=== PATIENT | male | born 1950 | race Caucasian/White ===

== ENCOUNTER 2016-12-15 17:36 | Inpatient (IN) | payer MEDICARE ==
[~2016-12-15] VITALS: Ht 177.8 cm; Wt 67.6 kg
[2016-12-15] MEDS ORDERED: ASPI81TA31 PO (18:18)
[2016-12-15] MEDS ORDERED: PROC5TAB PO (18:18)
[2016-12-15] MEDS ORDERED: ROPI0.253 PO (18:18)
[2016-12-15] MEDS ORDERED: FOLI1TAB16 PO (18:18)
[2016-12-15] MEDS ORDERED: MULT-70 PO (18:18)
[2016-12-15] MEDS ORDERED: SIMV20TA6 PO (18:18)
[2016-12-15] MEDS ORDERED: FERR-58 PO (18:18)
[2016-12-15] MEDS ORDERED: PREG50CA PO (18:18)
[2016-12-15] MEDS ORDERED: HYDR-3657 PO (18:18)
[2016-12-15] MEDS ORDERED: BUSP10TA3 PO (18:18)
[2016-12-15] MEDS ORDERED: DIAZ10TA4 PO (18:18)
[2016-12-15] MEDS ORDERED: DULO60CA45 PO (18:18)
[2016-12-15] MEDS ORDERED: CYAN10009 PO (18:18)
[2016-12-15] MEDS ORDERED: TRAZ-147 PO (18:18)
[2016-12-15] MEDS ORDERED: RANI150C4 PO (18:18)
[2016-12-15] MEDS ORDERED: CLONAZEPAM 0.5 MG TABLET PO ONE (19:15)
[2016-12-15] MEDS ORDERED: CLONAZEPAM 1 MG TABLET ONE (19:24)
--- NOTE | 2016-12-15 20:18 | NUR ---
Pt. admitted to [facility] , under care of Dr. Bolden/Dr Pedraza. Dx: Psychosis. On 5150 hold for Gravely Disabled. Belongs List completed.
[2016-12-15] MEDS ORDERED: MAG HYDROX/AL HYDROX/SIMETH 30 ML LIQUID UDC PO PRN (20:30)
[2016-12-15] MEDS ORDERED: MAGNESIUM HYDROXIDE 30 ML LIQUID UDC PO PRN (20:30)
[2016-12-15] MEDS ORDERED: TEMAZEPAM 7.5 MG CAPSULE PO PRN (20:30)
[2016-12-15] MEDS: ACETAMINOPHEN 325 MG TABLET PO PRN (20:40)
--- NOTE | 2016-12-15 21:35 | NUR ---
ADMITTED 66 YEAR OLD MALE ON 5150 FOR GD, AWAKE, A\O X3,ANXIOUS, CRYING SPELLS TO GET WHAT HE WANTS, LOUD, EASILY ANGRY AND AGITATED, NEEDY, DEMANDING, PRESSURED SPEECH, MED SEEKING, DEMANDING FOR LARGE DOSE OF SLEEPING PILL, UNCOOPERATIVE WITH THE ADMISSION PROCESS, UNABLE TO GIVE PERTINENT RESPONSES TO QUESTIONS ASKED, ATTEMPTED TO NOTIFY THE DESIGNATED PERSON ON FACE SHEET - HANS LEIVA,WAS TOLD THAT SHE IS GONE FOR THE DAY, IT APPEARS SHE IS A STAFF MEMBER AT [facility] , THE FACILITY WHERE PT RESIDES, EPIC DOCTOR CONTRACTS ANALYST PAGED THROUGH EXCHANGE TO [employer], WILL CONTINUE TO MONITOR CLOSELY.
[2016-12-15 22:12] VITALS: BP 135/86
[2016-12-16] MEDS: LORAZEPAM 0.5 MG TABLET PO PRN ×2 (01:03→09:33)
[2016-12-16 07:30] VITALS: BP 130/80
[2016-12-16] MEDS: ACETAMINOPHEN 325 MG TABLET PO PRN (09:33)
[2016-12-16] MEDS ORDERED: DULOXETINE 30 MG CAPSULE.DR PO SCH (14:30)
[2016-12-16] MEDS: CLONAZEPAM 1 MG TABLET PO PRN (14:50)
[2016-12-16] MEDS: ARIPIPRAZOLE 5 MG TABLET PO SCH (15:41)
[2016-12-16] MEDS: busPIRone 10 MG TABLET PO SCH ×2 (15:41→18:12)
[2016-12-16] MEDS: DULOXETINE 60 MG CAPSULE.DR PO SCH (15:42)
[2016-12-16 16:00] VITALS: BP 121/82
--- NOTE | 2016-12-16 16:15 | NUR ---
Initial discharge instructions: The patient resides at [facility] [[address] [place] [address] ]. Spoke with Leticia at the facility who stated that they will be accepting the patient back upon discharge. Spoke with the patient who stated that he would like to return to the facility upon discharge. SW will speak with pt and MD regarding most appropriate discharge plan. SW will form a safe and proper discharge.
[2016-12-16] MEDS: HYDROCODONE/APAP 10-325 MG TABLET PO PRN (17:10)
[2016-12-16] MEDS: PREGABALIN 25 MG CAPSULE PO SCH (18:13)
--- NOTE | 2016-12-16 20:00 | NUR ---
PT IS ANXIOUS, NEEDY, DEMANDING, ATTENTION AND MED SEEKING. THROWS TANTRUM WHEN HE DOES NOT GET HIS WAY, NEEDS REALITY ORIENTATION, WILL CONTINUE TO MONITOR CLOSELY.
[2016-12-16 20:25] VITALS: BP 147/91
[2016-12-16] MEDS: TAMSULOSIN HCL 0.4 MG CAP.SR.24H PO SCH (20:26)
[2016-12-16] MEDS: ropiniROLE 0.25 MG TABLET PO SCH (20:27)
[2016-12-16] MEDS: SIMVASTATIN 20 MG TABLET PO SCH (20:27)
[2016-12-17] MEDS: CLONAZEPAM 1 MG TABLET PO PRN ×3 (01:17→18:56)
[2016-12-17 07:30] VITALS: BP 116/79
[2016-12-17] MEDS ORDERED: Medication Not On Formulary EA (Multivitamins (Multivitamin) 1 EACH) PO SCH (09:00)
[2016-12-17] MEDS: FOLIC ACID 1 MG TABLET PO SCH (09:01)
[2016-12-17] MEDS: FAMOTIDINE 20 MG TABLET PO SCH (09:01)
[2016-12-17] MEDS: MULTIVITAMINS,THERAPEUTIC TABLET PO SCH (09:01)
[2016-12-17] MEDS: ASPIRIN 81 MG TAB.CHEW PO SCH (09:01)
[2016-12-17] MEDS: busPIRone 10 MG TABLET PO SCH ×3 (09:01→16:59)
[2016-12-17] MEDS: ARIPIPRAZOLE 5 MG TABLET PO SCH (09:01)
[2016-12-17] MEDS: FERROUS SULFATE 325 MG TABEC PO SCH (09:01)
[2016-12-17] MEDS: DULOXETINE 60 MG CAPSULE.DR PO SCH (09:01)
[2016-12-17] MEDS: CYANOCOBALAMIN 1,000 MCG TABLET PO SCH (09:01)
[2016-12-17] MEDS: PREGABALIN 25 MG CAPSULE PO SCH ×2 (09:01→16:59)
--- NOTE | 2016-12-17 14:55 | NUR ---
RECEIVED PHONE CALL FROM TAVARES ([phone]) FROM [facility], WHO REQUESTED TO BE NOTIFIED WHEN PT IS BEING DISCHARGED
[2016-12-17 15:00] VITALS: BP 127/66
[2016-12-17] MEDS ORDERED: TEMAZEPAM 7.5 MG CAPSULE PO PRN ×2 (15:00)
[2016-12-17] MEDS: HYDROCODONE/APAP 10-325 MG TABLET PO PRN (16:04)
[2016-12-17 20:09] VITALS: BP 114/71
[2016-12-17] MEDS: ropiniROLE 0.25 MG TABLET PO SCH (20:10)
[2016-12-17] MEDS: TAMSULOSIN HCL 0.4 MG CAP.SR.24H PO SCH (20:10)
[2016-12-17] MEDS: SIMVASTATIN 20 MG TABLET PO SCH (20:10)
[2016-12-17] MEDS: TEMAZEPAM 15 MG CAPSULE PO PRN (22:24)
[2016-12-18 07:25] LABS: BASOPHILS % (AUTO) 0.9 % (0.0-2.0); EOSINOPHILS # (AUTO) 0.2 K/uL (0.0-0.7); EOSINOPHILS % (AUTO) 3.5 % (0.0-7.0); HEMATOCRIT 31.4 % (40-50); HEMOGLOBIN 10.6 G/DL (14.0-18.0); LYMPHOCYTES # (AUTO) 1.3 K/UL (0.8-4.8); LYMPHOCYTES % (AUTO) 25.4 % (20.5-51.5); MEAN CORPUSCULAR HEMOGLOBIN 31.4 UUG (27.0-31.0); MEAN CORPUSCULAR HGB CONC 34 g/dL (32.0-37.0); MEAN CORPUSCULAR VOLUME 93.5 FL (82.0-92.0); MONOCYTES # (AUTO) 0.6 K/UL (0.1-1.30); NEUTROPHILS # (AUTO) 2.9 K/UL (1.8-8.9); NEUTROPHILS % (AUTO) 59.2 % (38.5-71.5); PLATELET COUNT (AUTO) 117 K/UL (150-450); RED BLOOD CELL COUNT(AUTO) 3.36 MIL/UL (4.7-6.1)
[2016-12-18 07:30] VITALS: BP 110/68
[2016-12-18 08:01] LABS: THYROID STIMULATING HORMONE 1.067 mIU/mL (0.358-3.740)
[2016-12-18] MEDS: FERROUS SULFATE 325 MG TABEC PO SCH (08:04)
[2016-12-18] MEDS: FOLIC ACID 1 MG TABLET PO SCH (08:04)
[2016-12-18] MEDS: MULTIVITAMINS,THERAPEUTIC TABLET PO SCH (08:04)
[2016-12-18] MEDS: PREGABALIN 25 MG CAPSULE PO SCH ×2 (08:04→16:05)
[2016-12-18] MEDS: CYANOCOBALAMIN 1,000 MCG TABLET PO SCH (08:04)
[2016-12-18] MEDS: FAMOTIDINE 20 MG TABLET PO SCH (08:04)
[2016-12-18] MEDS: ARIPIPRAZOLE 5 MG TABLET PO SCH (08:04)
[2016-12-18] MEDS: DULOXETINE 60 MG CAPSULE.DR PO SCH (08:04)
[2016-12-18] MEDS: busPIRone 10 MG TABLET PO SCH ×3 (08:04→16:05)
[2016-12-18] MEDS: ASPIRIN 81 MG TAB.CHEW PO SCH (08:04)
[2016-12-18 08:24] LABS: BILIRUBIN,TOTAL 0.6 mg/dL (0.2-1.0); CREATININE 2.2 mg/dL (0.6-1.3); MAGNESIUM 1.8 mg/dL (1.8-2.4); PHOSPHOROUS 3.7 mg/dL (2.5-4.9); POTASSIUM 4.8 mmol/L (3.5-5.1); TOTAL PROTEIN, SERUM 8.1 g/dL (6.4-8.2)
[2016-12-18] MEDS: CLONAZEPAM 1 MG TABLET PO PRN ×2 (11:49→16:05)
[2016-12-18 15:28] VITALS: BP 111/75
[2016-12-18] MEDS: HYDROCODONE/APAP 10-325 MG TABLET PO PRN (15:44)
[2016-12-18 20:12] VITALS: BP 104/55
[2016-12-18] MEDS: ropiniROLE 0.25 MG TABLET PO SCH (20:21)
[2016-12-18] MEDS: SIMVASTATIN 10 MG TABLET PO SCH (20:21)
[2016-12-18] MEDS: TAMSULOSIN HCL 0.4 MG CAP.SR.24H PO SCH (20:21)
[2016-12-18] MEDS: TEMAZEPAM 15 MG CAPSULE PO PRN (22:08)
[2016-12-19] MEDS: CLONAZEPAM 1 MG TABLET PO PRN ×3 (01:53→17:10)
[2016-12-19 07:30] VITALS: BP 112/73
[2016-12-19] MEDS: busPIRone 10 MG TABLET PO SCH ×3 (09:14→17:10)
[2016-12-19] MEDS: FOLIC ACID 1 MG TABLET PO SCH (09:14)
[2016-12-19] MEDS: PREGABALIN 25 MG CAPSULE PO SCH ×2 (09:14→17:10)
[2016-12-19] MEDS: ARIPIPRAZOLE 5 MG TABLET PO SCH (09:14)
[2016-12-19] MEDS: CYANOCOBALAMIN 1,000 MCG TABLET PO SCH (09:15)
[2016-12-19] MEDS: FAMOTIDINE 20 MG TABLET PO SCH (09:15)
[2016-12-19] MEDS: ASPIRIN 81 MG TAB.CHEW PO SCH (09:15)
[2016-12-19] MEDS: MULTIVITAMINS,THERAPEUTIC TABLET PO SCH (09:15)
[2016-12-19] MEDS: DULOXETINE 60 MG CAPSULE.DR PO SCH (09:15)
[2016-12-19] MEDS: FERROUS SULFATE 325 MG TABEC PO SCH (09:15)
[2016-12-19 15:16] VITALS: BP 116/46
[2016-12-19 20:02] VITALS: BP 95/68
[2016-12-19] MEDS: TAMSULOSIN HCL 0.4 MG CAP.SR.24H PO SCH (20:03)
[2016-12-19] MEDS: SIMVASTATIN 10 MG TABLET PO SCH (20:03)
[2016-12-19] MEDS: ropiniROLE 0.25 MG TABLET PO SCH (20:03)
[2016-12-19] MEDS: TEMAZEPAM 15 MG CAPSULE PO PRN (22:51)
--- NOTE | 2016-12-19 22:56 | NUR ---
GPS: PATIENT C/O INSOMNIA. RESTORIL 15 MG PO GIVEN FOR SLEEP.
--- NOTE | 2016-12-19 23:56 | NUR ---
GPS: PATIENT IS SLEEPING EYE CLOSE. PRN EFFECTIVE.
--- NOTE | 2016-12-20 06:27 | NUR ---
GPS: REMAIN COOPERATIVE WITH MEDS AND CARE. SLEPT 08:30 HRS THROUGH THE NIGHT.NO AGITATION NOTED NO C/O PAIN OR DISCOMFORT THIS TIME. CONTINUE PLAN OF CARE.
[2016-12-20 07:30] VITALS: BP 101/60
[2016-12-20 07:38] LABS: POTASSIUM 4.3 mmol/L (3.5-5.1)
[2016-12-20] MEDS: FAMOTIDINE 20 MG TABLET PO SCH (09:01)
[2016-12-20] MEDS: FOLIC ACID 1 MG TABLET PO SCH (09:01)
[2016-12-20] MEDS: busPIRone 10 MG TABLET PO SCH ×3 (09:01→16:11)
[2016-12-20] MEDS: MULTIVITAMINS,THERAPEUTIC TABLET PO SCH (09:01)
[2016-12-20] MEDS: DULOXETINE 60 MG CAPSULE.DR PO SCH (09:01)
[2016-12-20] MEDS: FERROUS SULFATE 325 MG TABEC PO SCH (09:01)
[2016-12-20] MEDS: ARIPIPRAZOLE 5 MG TABLET PO SCH (09:01)
[2016-12-20] MEDS: CYANOCOBALAMIN 1,000 MCG TABLET PO SCH (09:01)
[2016-12-20] MEDS: ASPIRIN 81 MG TAB.CHEW PO SCH (09:01)
[2016-12-20] MEDS: PREGABALIN 25 MG CAPSULE PO SCH ×2 (09:02→16:11)
[2016-12-20 15:43] VITALS: BP 112/73
[2016-12-20] MEDS: HYDROCODONE/APAP 10-325 MG TABLET PO PRN (16:11)
[2016-12-20] MEDS: TAMSULOSIN HCL 0.4 MG CAP.SR.24H PO SCH (20:55)
[2016-12-20] MEDS: SIMVASTATIN 10 MG TABLET PO SCH (20:55)
[2016-12-20] MEDS: ropiniROLE 0.25 MG TABLET PO SCH (20:55)
[2016-12-20 21:09] VITALS: BP 116/62
[2016-12-20] MEDS: CLONAZEPAM 1 MG TABLET PO PRN (21:20)
--- NOTE | 2016-12-20 22:00 | NUR ---
received to care, lying in bed, non interactive with peers, appearing isolative, upon approach. compliant with medications and staff direction. PRN sononopin was given at 2119 for stated anxiety. as of 2199, he remains awake in bed. states his anxiety is much better. currently eating a snack. no distress noted. will continue to monitor closely.
[2016-12-20] MEDS: TEMAZEPAM 15 MG CAPSULE PO PRN (23:46)
--- NOTE | 2016-12-20 23:46 | NUR ---
remains awake. PRN restoril, was given at this time.
--- NOTE | 2016-12-21 06:01 | NUR ---
slept well last night, 9 hours, total. remains asleep, but easy to awaken. no distress noted. will continue to [id number] closely.
[2016-12-21 07:30] VITALS: BP 98/60
[2016-12-21] MEDS: FERROUS SULFATE 325 MG TABEC PO SCH (08:36)
[2016-12-21] MEDS: FAMOTIDINE 20 MG TABLET PO SCH (08:36)
[2016-12-21] MEDS: MULTIVITAMINS,THERAPEUTIC TABLET PO SCH (08:36)
[2016-12-21] MEDS: busPIRone 10 MG TABLET PO SCH ×3 (08:36→17:05)
[2016-12-21] MEDS: DULOXETINE 60 MG CAPSULE.DR PO SCH (08:36)
[2016-12-21] MEDS: CYANOCOBALAMIN 1,000 MCG TABLET PO SCH (08:36)
[2016-12-21] MEDS: PREGABALIN 25 MG CAPSULE PO SCH ×2 (08:36→17:05)
[2016-12-21] MEDS: ARIPIPRAZOLE 5 MG TABLET PO SCH (08:36)
[2016-12-21] MEDS: FOLIC ACID 1 MG TABLET PO SCH (08:36)
[2016-12-21] MEDS: ASPIRIN 81 MG TAB.CHEW PO SCH (08:37)
[2016-12-21] MEDS: HYDROCODONE/APAP 10-325 MG TABLET PO PRN (11:41)
[2016-12-21 15:11] VITALS: BP 107/64
[2016-12-21 20:07] VITALS: BP 126/96
[2016-12-21] MEDS: TAMSULOSIN HCL 0.4 MG CAP.SR.24H PO SCH (20:19)
[2016-12-21] MEDS: SIMVASTATIN 10 MG TABLET PO SCH (20:19)
[2016-12-21] MEDS: ropiniROLE 0.25 MG TABLET PO SCH (20:19)
[2016-12-21] MEDS: CLONAZEPAM 1 MG TABLET PO PRN (21:03)
[2016-12-21] MEDS: TEMAZEPAM 15 MG CAPSULE PO PRN (22:11)
[2016-12-22] MEDS: CLONAZEPAM 1 MG TABLET PO PRN ×2 (06:48→17:35)
[2016-12-22 07:30] VITALS: BP 102/68
[2016-12-22 07:52] LABS: BASOPHILS % (AUTO) 0.6 % (0.0-2.0); EOSINOPHILS # (AUTO) 0.2 K/uL (0.0-0.7); EOSINOPHILS % (AUTO) 3.8 % (0.0-7.0); HEMATOCRIT 31.3 % (40-50); HEMOGLOBIN 10.8 G/DL (14.0-18.0); LYMPHOCYTES # (AUTO) 1.2 K/UL (0.8-4.8); LYMPHOCYTES % (AUTO) 24.1 % (20.5-51.5); MEAN CORPUSCULAR HEMOGLOBIN 32.3 UUG (27.0-31.0); MEAN CORPUSCULAR HGB CONC 34 g/dL (32.0-37.0); MEAN CORPUSCULAR VOLUME 93.9 FL (82.0-92.0); MONOCYTES # (AUTO) 0.3 K/UL (0.1-1.30); MONOCYTES % (AUTO) 6.7 % (0.0-11.0); NEUTROPHILS # (AUTO) 3.4 K/UL (1.8-8.9); NEUTROPHILS % (AUTO) 64.8 % (38.5-71.5); PLATELET COUNT (AUTO) 122 K/UL (150-450); RED BLOOD CELL COUNT(AUTO) 3.33 MIL/UL (4.7-6.1); WHITE BLOOD COUNT (AUTO) 5.1 K/UL (4.0-11.2)
[2016-12-22] MEDS: ARIPIPRAZOLE 5 MG TABLET PO SCH (08:36)
[2016-12-22] MEDS: CYANOCOBALAMIN 1,000 MCG TABLET PO SCH (08:36)
[2016-12-22] MEDS: FERROUS SULFATE 325 MG TABEC PO SCH (08:37)
[2016-12-22] MEDS: FAMOTIDINE 20 MG TABLET PO SCH (08:37)
[2016-12-22] MEDS: PREGABALIN 25 MG CAPSULE PO SCH ×2 (08:37→16:24)
[2016-12-22] MEDS: busPIRone 10 MG TABLET PO SCH ×3 (08:37→16:24)
[2016-12-22] MEDS: FOLIC ACID 1 MG TABLET PO SCH (08:37)
[2016-12-22] MEDS: ASPIRIN 81 MG TAB.CHEW PO SCH (08:37)
[2016-12-22] MEDS: MULTIVITAMINS,THERAPEUTIC TABLET PO SCH (08:37)
[2016-12-22] MEDS: DULOXETINE 60 MG CAPSULE.DR PO SCH (08:37)
[2016-12-22] MEDS: HYDROCODONE/APAP 10-325 MG TABLET PO PRN ×2 (10:53→19:07)
[2016-12-22 16:00] VITALS: BP 106/68
[2016-12-22] MEDS ORDERED: TEMAZEPAM 15 MG CAPSULE PO PRN (18:30)
--- NOTE | 2016-12-22 19:30 | NUR ---
LAYING IN BED AWAKE. NO ACUTE DISTRESS NOTED. NO HALLUCINATIONS NOTED AT THIS TIME. CALM AND COMFORTABLE. NEEDS ATTENDED. WILL CONTINUE TO MONITOR
[2016-12-22 20:22] VITALS: BP 104/68
[2016-12-22] MEDS: SIMVASTATIN 10 MG TABLET PO SCH (21:15)
[2016-12-22] MEDS: TAMSULOSIN HCL 0.4 MG CAP.SR.24H PO SCH (21:15)
[2016-12-22] MEDS: ropiniROLE 0.25 MG TABLET PO SCH (21:15)
[2016-12-22] MEDS: TEMAZEPAM 30 MG CAPSULE PO PRN (21:51)
[2016-12-23] MEDS: CLONAZEPAM 1 MG TABLET PO PRN ×2 (03:20→20:18)
--- NOTE | 2016-12-23 06:05 | NUR ---
SLEPT INTERMITTENTLY DURING THE SHIFT. ABLE TO SLEEP FOR A TOTAL OF 5.30 HOURS. NO ACUTE DISTRESS NOTED. NO NOTED HEARING OF VOICES. CALM AND COMFORTABLE.
[2016-12-23 07:30] VITALS: BP 108/63
[2016-12-23] MEDS: PREGABALIN 25 MG CAPSULE PO SCH ×2 (08:36→17:15)
[2016-12-23] MEDS: FERROUS SULFATE 325 MG TABEC PO SCH (08:36)
[2016-12-23] MEDS: ASPIRIN 81 MG TAB.CHEW PO SCH (08:36)
[2016-12-23] MEDS: FAMOTIDINE 20 MG TABLET PO SCH (08:36)
[2016-12-23] MEDS: MULTIVITAMINS,THERAPEUTIC TABLET PO SCH (08:36)
[2016-12-23] MEDS: busPIRone 10 MG TABLET PO SCH ×3 (08:36→17:15)
[2016-12-23] MEDS: CYANOCOBALAMIN 1,000 MCG TABLET PO SCH (08:36)
[2016-12-23] MEDS: ARIPIPRAZOLE 5 MG TABLET PO SCH (08:36)
[2016-12-23] MEDS: FOLIC ACID 1 MG TABLET PO SCH (08:36)
[2016-12-23] MEDS: DULOXETINE 60 MG CAPSULE.DR PO SCH (08:36)
[2016-12-23 16:00] VITALS: BP 115/72
[2016-12-23 20:36] VITALS: BP 112/79
[2016-12-23] MEDS: ropiniROLE 0.25 MG TABLET PO SCH (21:40)
[2016-12-23] MEDS: SIMVASTATIN 10 MG TABLET PO SCH (21:40)
[2016-12-23] MEDS: TAMSULOSIN HCL 0.4 MG CAP.SR.24H PO SCH (21:40)
[2016-12-23] MEDS: TEMAZEPAM 30 MG CAPSULE PO PRN (21:43)
[2016-12-24 05:57] LABS: *BILIRUBIN,URIN NEGATIVE (NEGATIVE); *BLOOD, URINE NEGATIVE (NEGATIVE); *CLARITY,URINE CLEAR (CLEAR); *COLOR,URINE YELLOW (YELLOW); *KETONES,URINE NEGATIVE (NEGATIVE); *PROTEIN,URINE NEGATIVE (NEGATIVE); *UROBILINOGEN,URINE 0.2 E.U./dl (NORMAL); LEUKOCYTE ESTERASE ,URINE NEGATIVE (NEGATIVE); NITRITE, URINE NEGATIVE (NEGATIVE); UGLUCOSE NEGATIVE (NEGATIVE)
[2016-12-24 06:22] LABS: RBC,URINE NONE SEEN /HPF (0-3); WBC,URINE 0-3 /HPF (0-3)
[2016-12-24 06:23] LABS: BACTERIA,URINE NONE SEEN /HPF (NONE SEEN); SQUAMOUS EPITHELIAL CELL,UR FEW /HPF (NONE SEEN)
[2016-12-24 06:46] LABS: *CREATININE,URINE 35.7 mg/dL (30-125); *URINE TOTAL PROTEIN RANDOM 16.6 mg/dL (<150/24HR)
[2016-12-24 07:30] VITALS: BP 116/74
[2016-12-24 08:17] LABS: BASOPHILS % (AUTO) 0.5 % (0.0-2.0); EOSINOPHILS # (AUTO) 0.2 K/uL (0.0-0.7); EOSINOPHILS % (AUTO) 4.1 % (0.0-7.0); HEMATOCRIT 32.1 % (40-50); HEMOGLOBIN 11.1 G/DL (14.0-18.0); LYMPHOCYTES # (AUTO) 1.3 K/UL (0.8-4.8); LYMPHOCYTES % (AUTO) 22.3 % (20.5-51.5); MEAN CORPUSCULAR HEMOGLOBIN 32.3 UUG (27.0-31.0); MEAN CORPUSCULAR HGB CONC 35 g/dL (32.0-37.0); MEAN CORPUSCULAR VOLUME 93.1 FL (82.0-92.0); MONOCYTES # (AUTO) 0.4 K/UL (0.1-1.30); MONOCYTES % (AUTO) 7.6 % (0.0-11.0); NEUTROPHILS # (AUTO) 3.9 K/UL (1.8-8.9); NEUTROPHILS % (AUTO) 65.5 % (38.5-71.5); PLATELET COUNT (AUTO) 123 K/UL (150-450); RED BLOOD CELL COUNT(AUTO) 3.45 MIL/UL (4.7-6.1); WHITE BLOOD COUNT (AUTO) 5.9 K/UL (4.0-11.2)
[2016-12-24] MEDS: MULTIVITAMINS,THERAPEUTIC TABLET PO SCH (08:48)
[2016-12-24] MEDS: busPIRone 10 MG TABLET PO SCH ×2 (08:48→12:36)
[2016-12-24] MEDS: FOLIC ACID 1 MG TABLET PO SCH (08:48)
[2016-12-24] MEDS: ASPIRIN 81 MG TAB.CHEW PO SCH (08:48)
[2016-12-24] MEDS: PREGABALIN 25 MG CAPSULE PO SCH (08:48)
[2016-12-24] MEDS: FERROUS SULFATE 325 MG TABEC PO SCH (08:48)
[2016-12-24] MEDS: DULOXETINE 60 MG CAPSULE.DR PO SCH (08:48)
[2016-12-24] MEDS: FAMOTIDINE 20 MG TABLET PO SCH (08:48)
[2016-12-24] MEDS: CYANOCOBALAMIN 1,000 MCG TABLET PO SCH (08:48)
[2016-12-24] MEDS: ARIPIPRAZOLE 5 MG TABLET PO SCH (08:48)
[2016-12-24 09:01] LABS: BILIRUBIN,TOTAL 0.7 mg/dL (0.2-1.0); MAGNESIUM 1.9 mg/dL (1.8-2.4); PHOSPHOROUS 3.7 mg/dL (2.5-4.9); POTASSIUM 4.3 mmol/L (3.5-5.1)
--- NOTE | 2016-12-24 12:09 | NUR ---
DC Note: The patient will be discharged today back to [facility] [[address], [place] [address] ] via ambulance. The formula mixer of the facility, Shaheed came to assess the patient today at 12:00 pm and stated that they will be accepting the patient back today. ROSEMARY called the facility and spoke with Angie, informing her that the patient will be discharged there today. The patient is aware and agreeable with the discharge plan. The patient stated that he will follow-up with his psychiatrist Dr. Najera and his vaccine specialist Dr. Andino at the [facility] [[address] [place] [address] ]. The patient also stated that he will follow-up with his animated cartoons painter Dr. Nicolás Antonio [[address], [place] [address] ].
[2016-12-24 15:06] VITALS: BP 138/80
--- NOTE | 2016-12-24 15:30 | NUR ---
1435 Called [facility] spoke to Tita Bañuelos, Medical Assistance and report given to her regarding patient's medications to continue upon discharge of the hospital and diagnosis. Also, informed that prescription already called to patient's pharmacy.[id number] Patient picked up by ambulance and transferred to [facility] stable condition, patient denies SI/HI. no delusions/ no hallucinations noted.
[2016-12-27 08:10] LABS: A/G RATIO 0.8 (0.7-1.7); ALBUMIN 3.3 g/dL (2.9-4.4); ALPHA-1-GLOBULIN 0.3 g/dL (0.0-0.4); ALPHA-2-GLOBULIN 0.8 g/dL (0.4-1.0); BETA GLOBULIN 0.8 g/dL (0.7-1.3); GLOBULIN, TOTAL 3.9 g/dL (2.2-3.9); M-SPIKE Not Observed g/dL (Not Observed)
== END 2016-12-24 15:00 | DRG 885 ==
LOC: ER 17:36 → GPS 20:11
PROVIDERS: ADMIT Psychiatry & Neurology Psychiatry; ATTEND Internal Medicine
DX: F31.5 Bipolar disorder, current episode depressed, severe, with psychotic features (principal); N18.9 Chronic kidney disease, unspecified; F11.20 Opioid dependence, uncomplicated; G93.40 Encephalopathy, unspecified; D68.59 Other primary thrombophilia; I25.2 Old myocardial infarction; E78.5 Hyperlipidemia, unspecified; G89.4 Chronic pain syndrome; Z74.09 Other reduced mobility; E53.8 Deficiency of other specified B group vitamins; G25.81 Restless legs syndrome; I25.10 Atherosclerotic heart disease of native coronary artery without angina pectoris; I12.9 Hypertensive chronic kidney disease with stage 1 through stage 4 chronic kidney disease, or unspecified chronic kidney disease; N40.0 Benign prostatic hyperplasia without lower urinary tract symptoms; Z79.899 Other long term (current) drug therapy; Z98.1 Arthrodesis status; Z79.82 Long term (current) use of aspirin; N28.1 Cyst of kidney, acquired; F20.9 Schizophrenia, unspecified; D69.6 Thrombocytopenia, unspecified; D64.9 Anemia, unspecified; F41.9 Anxiety disorder, unspecified; G47.00 Insomnia, unspecified
CPT/HCPCS: 36415; 76770; 82306; 83550; 83735; 83970; 84100; 84155; 84156; 84165; 84300; 84443; 85025; 86140; 97116; 97161; 97530; A4663; J8499

== ENCOUNTER 2018-03-13 15:10 | Emergency (ER) | payer MEDICARE, OTHER ==
[~2018-03-13] VITALS: Ht 177.8 cm; Wt 77.1 kg
[~2018-03-13 15:10] MED LIST: LORA10TA7 PO; OMEP20CA10 PO; ROPI0.253 PO; SIMV20TA6 PO
[2018-03-13 15:46] LABS: BASOPHILS % (AUTO) 0.6 % (0.0-2.0); EOSINOPHILS # (AUTO) 0.1 K/uL (0.0-0.7); EOSINOPHILS % (AUTO) 1.2 % (0.0-7.0); HEMATOCRIT 35.5 % (36.7-47.1); HEMOGLOBIN 12.4 g/dL (12.5-16.3); LYMPHOCYTES # (AUTO) 1.6 K/uL (20.0-40.0); LYMPHOCYTES % (AUTO) 23.9 % (20.5-51.5); MEAN CORPUSCULAR HEMOGLOBIN 33.4 uug (23.8-33.4); MEAN CORPUSCULAR HGB CONC 35 g/dL (32.5-36.3); MEAN CORPUSCULAR VOLUME 95.1 fL (73.0-96.2); MONOCYTES # (AUTO) 0.6 K/uL (2.0-10.0); MONOCYTES % (AUTO) 8.6 % (0.0-11.0); NEUTROPHILS # (AUTO) 4.4 K/uL (1.8-8.9); NEUTROPHILS % (AUTO) 65.7 % (38.5-71.5); PLATELET COUNT (AUTO) 119 K/uL (152-348); RED BLOOD CELL COUNT(AUTO) 3.73 MIL/uL (4.06-5.63); WHITE BLOOD COUNT (AUTO) 6.6 K/uL (3.6-10.2)
[2018-03-13] MEDS ORDERED: DULO60CA45 PO ×2 (15:50)
[2018-03-13] MEDS ORDERED: RISP2TAB23 PO (15:50)
[2018-03-13] MEDS ORDERED: LORA2TAB PO (15:50)
[2018-03-13] MEDS ORDERED: SERT25TA PO (15:50)
[2018-03-13] MEDS ORDERED: CARV3.122 PO (15:50)
[2018-03-13] MEDS ORDERED: FAMO40TA7 PO (15:50)
[2018-03-13] MEDS ORDERED: BENZ2TAB7 PO (15:50)
[2018-03-13] MEDS ORDERED: AMLO10TA2 PO (15:50)
[2018-03-13] MEDS ORDERED: TRAZ-214 PO (15:50)
[2018-03-13 15:56] LABS: CARBON DIOXIDE 21 mmol/L (21-32); CHLORIDE 108 mmol/L (98-107); CREATININE 2.6 mg/dL (0.6-1.3); GLUCOSE 110 mg/dL (74-106); POTASSIUM 4.4 mmol/L (3.5-5.1); UREA NITROGEN, BLOOD 35 mg/dL (7-18)
[2018-03-13 16:02] LABS: ALANINE AMINOTRANSFERASE 25 U/L (16-63); ALKALINE PHOSPHATASE 51 U/L (50-136); ASPARTATE AMINOTRANSFERASE 28 U/L (15-37); BILIRUBIN,DIRECT 0.3 mg/dL (0.0-0.2); BILIRUBIN,TOTAL 1.3 mg/dL (0.2-1.0); TOTAL PROTEIN, SERUM 7.2 g/dL (6.4-8.2)
[2018-03-13 16:05] LABS: ACETAMINOPHEN < 2.0 ug/mL (10-30)
[2018-03-13 16:09] LABS: ETHANOL < 3 MG/DL (0-0)
[2018-03-13] MEDS ORDERED: OLANZAPINE 5 MG TABLET PO ONE (16:15)
[2018-03-13] MEDS ORDERED: OLANZAPINE 5 MG TABLET ONE (16:22)
[2018-03-13] MEDS ORDERED: LORAZEPAM 0.5 MG TABLET PO ONE (17:00)
[2018-03-13] MEDS ORDERED: CHLORDIAZEPOXIDE HCL 25 MG CAPSULE PO ONE (17:00)
[2018-03-13] MEDS ORDERED: CHLORDIAZEPOXIDE HCL 25 MG CAPSULE ONE (17:00)
[2018-03-13] MEDS ORDERED: LORAZEPAM 1 MG TABLET ONE (17:00)
--- NOTE | 2018-03-13 18:00 | NUR ---
PT MEDICALLY CLEARED BY DR. SEN CALLED [facility]ERE[facility] FOR PSYCH EVAL.
--- NOTE | 2018-03-13 18:26 | NUR ---
[facility] PEREZ AT BEDSIDE FOR PSYCH EVAL
--- NOTE | 2018-03-13 19:12 | NUR ---
CALLED [facility] TO TRANSFER THE PT TO [facility]. ETA 60 MINUTES, TRIP NUMBER [id number]
--- NOTE | 2018-03-13 19:24 | NUR ---
HANDS OFF REPORT GIVEN TO BONNY BROWN
--- NOTE | 2018-03-13 20:30 | NUR ---
REPORT GIVEN TO EMT KANDICE Morales/ JOCE # [id number]
--- NOTE | 2018-03-13 20:33 | NUR ---
PT IN ROUTE HOME W/ EMT KANDICE IN [facility] #[id number]
[2018-03-13 21:33] VITALS: BP 106/72
== END 2018-03-13 20:33 | disposition home or self-care (01) ==
LOC: ER 15:10
DX: F29 Unspecified psychosis not due to a substance or known physiological condition (principal); I25.2 Old myocardial infarction; I10 Essential (primary) hypertension; I25.10 Atherosclerotic heart disease of native coronary artery without angina pectoris; E78.00 Pure hypercholesterolemia, unspecified; K21.9 Gastro-esophageal reflux disease without esophagitis; F17.200 Nicotine dependence, unspecified, uncomplicated
CPT/HCPCS: 36415; 80048; 80076; 85025; 93005; 99285; A4663; G0480 ×2; G0481